=== PATIENT | male | born 1985 | race Caucasian/White ===

== ENCOUNTER 2018-08-21 09:33 | Emergency (ER) | payer MEDICAID ==
[~2018-08-21] VITALS: Ht 182.9 cm; Wt 82.0 kg
[~2018-08-21 09:33] MED LIST: CYCL-120 PO; HYDR-4383 PO; NO HOME MEDS
[2018-08-21 09:35] VITALS: BP 114/68
[2018-08-21] MEDS ORDERED: cyclobenzaprine 10mg tablet PO ONE (10:25)
[2018-08-21] MEDS ORDERED: ibuprofen tablet 400 MG TABLET PO ONE (10:25)
[2018-08-21] MEDS ORDERED: CYCL-1 PO (10:34)
== END 2018-08-21 10:47 | disposition home or self-care (01) ==
LOC: ER 09:34
DX: S29.012A Strain of muscle and tendon of back wall of thorax, initial encounter (principal); G89.29 Other chronic pain; F12.90 Cannabis use, unspecified, uncomplicated; F17.200 Nicotine dependence, unspecified, uncomplicated; Z56.0 Unemployment, unspecified; Z88.8 Allergy status to other drugs, medicaments and biological substances; X58.XXXA Exposure to other specified factors, initial encounter; Y93.89 Activity, other specified; Y92.89 Other specified places as the place of occurrence of the external cause; Y99.8 Other external cause status
CPT/HCPCS: 99283

== ENCOUNTER 2020-09-20 12:17 | Emergency (ER) | payer MEDICAID, OTHER ==
[~2020-09-20] VITALS: Ht 182.9 cm; Wt 88.6 kg
[~2020-09-20 12:17] MED LIST changes: +CYCL-1 PO
[2020-09-20 12:34] VITALS: BP 139/90
[2020-09-20] MEDS ORDERED: ketorolac trometh inj. 60 MG/2 ML VIAL IM ONE (12:50)
[2020-09-20] MEDS ORDERED: ORPH100T2 PO (12:53)
== END 2020-09-20 13:07 | disposition home or self-care (01) ==
LOC: ER 12:18
DX: S13.4XXA Sprain of ligaments of cervical spine, initial encounter (principal); G89.29 Other chronic pain; F17.200 Nicotine dependence, unspecified, uncomplicated; F12.90 Cannabis use, unspecified, uncomplicated; Z56.0 Unemployment, unspecified; Z88.8 Allergy status to other drugs, medicaments and biological substances; Z79.899 Other long term (current) drug therapy; V44.5XXA Car driver injured in collision with heavy transport vehicle or bus in traffic accident, initial encounter; Y93.89 Activity, other specified; Y92.89 Other specified places as the place of occurrence of the external cause; Y99.8 Other external cause status
CPT/HCPCS: 99283

== ENCOUNTER → 2024-03-21 | Emergency (ER) | payer MEDICAID ==
[~2024-03-21] VITALS: Ht 182.9 cm; Wt 215.0 kg
[~2024-03-21] MED LIST changes: +DEC4T PO; +HYDR-3972 PO; +IBUP-1986 PO; +ORPH100T4 PO
[2024-03-21 09:21] VITALS: BP 111/87; PULSE 79; RESP 18; TEMP 97.6; O2SAT 96
[2024-03-21] MEDS: dexamethasone 4mg tablet PO ONE (11:16)
[2024-03-21] MEDS: ibuprofen tablet 400 MG TABLET PO ONE (11:31)
== END | disposition home or self-care (01) ==
LOC: ER 09:15
DX: M54.50 Low back pain, unspecified (principal); F12.90 Cannabis use, unspecified, uncomplicated; Z88.8 Allergy status to other drugs, medicaments and biological substances; Z79.1 Long term (current) use of non-steroidal anti-inflammatories (NSAID); Z79.899 Other long term (current) drug therapy
CPT/HCPCS: 72100; 99284